=== PATIENT | female | born 1995 | race Caucasian/White ===

== ENCOUNTER 2018-05-26 02:34 | Emergency (ER) | payer BC ==
[~2018-05-26 02:34] MED LIST: ALLERGY MEDICATION; CYCL10TA29 PO; IBUP800T37 PO; TRAM-420 PO
--- NOTE | 2018-05-26 02:37 | ER Report ---
History and Physical Time Seen By MD: 02:37 HPI/ROS CHIEF COMPLAINT: Cramping in1st trimester HISTORY OF PRESENT ILLNESS: Patient is a 22-year-old female who presents with complaint of cramping and positive test. Patient states that her 1st date of her last menstrual period was April 28. She states that 2 days ago she took a urine at home test which was positive and a 2nd test yesterday and again was positive. This evening she woke up with severe lower abdominal cramping without vaginal bleeding. Patient states when the pain comes in waves it is about 7 out of 10 in intensity. Patient has no prior history. Patient is undiagnosed with endometriosis however her mother apparently had severe endometriosis resulting in hysterectomy. Patient does have very painful menses. However she has never been diagnosed with the disease. Patient is monogamous with her . Patient denies any vaginal discharge or bleeding at this time. She does report nausea but no vomiting. She denies any chest pain or shortness of breath. Denies any dysuria and increased urinary frequency or blood in the urine. REVIEW OF SYSTEMS: Respiratory: No cough, no dyspnea. Cardiovascular: No chest pain, no palpitations. Gastrointestinal: Nausea and lower pelvic and abdominal cramping Musculoskeletal: No back pain. Allergies: Coded Allergies: grass pollen (Verified Allergy, Intermediate, congestion, 05/26/18) Home Meds No Active Prescriptions or Reported Meds Past Medical/Surgical History HSV2 Hx Smoking: Yes Smoking Status: Current: Some Days Smoker Hx Substance Use Disorder: No Constitutional Vital Sign - Last 24 Hours 05/26/18 05/26/18 02:43 04:15 Temp 97.4 Pulse 109 85 Resp 16 16 B/P (MAP) 125/60 110/72 (85) Pulse Ox 96 93 O2 Delivery Room Air Room Air Physical Exam General Appearance: The patient is alert, has no immediate need for airway protection and no current signs of toxicity. Respiratory: Chest is non tender, lungs are clear to auscultation. Cardiac: regular rate and rhythm Gastrointestinal: Abdomen is soft and non tender, no masses, bowel sounds normal. Musculoskeletal: Neck: Neck is supple and non tender. Extremities have full range of motion and are non tender. Skin: No rashes or lesions. Medical Decision Making Data Points Laboratory Hematology Test 05/26/18 02:38 05/26/18 03:10 Urine Color Yellow Urine Clarity Slightly-cloudy Urine pH 6.0 pH (4.8-9.5) Urine Specific [place] 1.029 Urine Protein 30 mg/dL (NEGATIVE) Urine Glucose (UA) 50 mg/dL (NEGATIVE) Urine Ketones 80 mg/dL (NEGATIVE) Urine Blood Negative (NEGATIVE) Urine Nitrite Negative (NEGATIVE) Urine Bilirubin Negative (NEGATIVE) Urine Urobilinogen 2.0 mg/dL (0.2-1.9) Urine Leukocyte Esterase Negative (NEGATIVE) Urine RBC <1 /HPF (0-2/HPF) Urine WBC None /HPF (0-5/HPF) Urine Squamous Epithelial Cells None /LPF (</=FEW) Urine Bacteria Negative /HPF (NONE-FEW) Urine Mucus Few /HPF (NONE-FEW) Urine HCG, Qualitative Positive (NEGATIVE) Human Chorionic Gonadotropin, Quant 134 mIU/ml Chemistry Test 05/26/18 02:38 05/26/18 03:10 Urine Color Yellow Urine Clarity Slightly-cloudy Urine pH 6.0 pH (4.8-9.5) Urine Specific [place] 1.029 Urine Protein 30 mg/dL (NEGATIVE) Urine Glucose (UA) 50 mg/dL (NEGATIVE) Urine Ketones 80 mg/dL (NEGATIVE) Urine Blood Negative (NEGATIVE) Urine Nitrite Negative (NEGATIVE) Urine Bilirubin Negative (NEGATIVE) Urine Urobilinogen 2.0 mg/dL (0.2-1.9) Urine Leukocyte Esterase Negative (NEGATIVE) Urine RBC <1 /HPF (0-2/HPF) Urine WBC None /HPF (0-5/HPF) Urine Squamous Epithelial Cells None /LPF (</=FEW) Urine Bacteria Negative /HPF (NONE-FEW) Urine Mucus Few /HPF (NONE-FEW) Urine HCG, Qualitative Positive (NEGATIVE) Human Chorionic Gonadotropin, Quant 134 mIU/ml Urinalysis Test 05/26/18 02:38 Urine Color Yellow Urine Clarity Slightly-cloudy Urine pH 6.0 pH (4.8-9.5) Urine Specific [place] 1.029 Urine Protein 30 mg/dL (NEGATIVE) Urine Glucose (UA) 50 mg/dL (NEGATIVE) Urine Ketones 80 mg/dL (NEGATIVE) Urine Blood Negative (NEGATIVE) Urine Nitrite Negative (NEGATIVE) Urine Bilirubin Negative (NEGATIVE) Urine Urobilinogen 2.0 mg/dL (0.2-1.9) Urine Leukocyte Esterase Negative (NEGATIVE) Urine RBC <1 /HPF (0-2/HPF) Urine WBC None /HPF (0-5/HPF) Urine Squamous Epithelial Cells None /LPF (</=FEW) Urine Bacteria Negative /HPF (NONE-FEW) Urine Mucus Few /HPF (NONE-FEW) Urine HCG, Qualitative Positive (NEGATIVE) ED Course/Re-evaluation ED Course By first aid of last menstrual period of 04/28/2018 patient would be extremely early . Urine test was positive. Plan at this time will be to draw a beta hCG Quant to obtain baseline level. Patient does not appear hypotensive, tachycardic and is not having any evidence of vaginal bleeding currently.After history and physical exam was performed differential diagnosis was formulated which includes but is not limited to early , ectopic , threatened miscarriage. I explained to the patient that she is very early in this and she will likely require follow-up in 2-3 days for repeat beta Quant test to see which direction of the hormone levels are trending. 05/26/2018 4:09:04 am beta Quant is 134 and some cramping still no vaginal bleeding. We will discharge patient home at this time with instructions to return in 48 hours for repeat Quant level or to return to the emergency departm ent immediately if her abdominal pain becomes worse or she starts experiencing vaginal bleeding. Decision to Disposition Date: May 26, 2018 Decision to Disposition Time: 04:09 Depart Departure Latest Vital Signs Vital Signs Date Time Temp Pulse Resp B/P (MAP) Pulse Ox O2 Delivery O2 Flow Rate FiO2 05/26/18 04:15 85 16 110/72 (85) 93 Room Air 05/26/18 02:43 97.4 Impression: Primary Impression: Threatened miscarriage in early Condition: Improved Disposition: HOME OR SELF-CARE New Scripts No Active Prescriptions or Reported Meds Departure Forms: ER Transition Record, Medications Reconciliation, Off Work/School Form, School or Work Release?: Work Number of days to be released: 2 Patient Portal Information Patient Instructions: Threatened Miscarriage (ED) Additional Instructions: Return to the emergency department, and register as a patient in 48 hours to have a repeat beta hCG test drawn and have a repeat evaluation done. If at any time your abdominal pain worsens or he started having abdominal pain with vaginal bleeding he should return to the emergency department immediately. You should remain at pelvic rest meaning nothing in the vagina until cleared by TRANSMITTER ENGINEER IN CHARGE. MASON STEVENS MD 9, 2018 02:37
[2018-05-26] MEDS ORDERED: ONDANSETRON 4 MG ODT TH SL ONE (03:00)
[2018-05-26] MEDS ORDERED: ACETAMINOPHEN 325 MG TAB PO ONE (03:00)
[2018-05-26 04:15] VITALS: BP 110/72
== END 2018-05-26 04:18 | disposition home or self-care (01) ==
LOC: ER 02:38
DX: O20.0 Threatened abortion (principal); Z3A.00 Weeks of gestation of pregnancy not specified
CPT/HCPCS: 81001; 81025; 84702; 99283; S0119

== ENCOUNTER 2018-05-28 18:07 | Emergency (ER) | payer BC ==
[2018-05-28 18:11] VITALS: BP 122/76
--- NOTE | 2018-05-28 18:21 | ER Report ---
History and Physical Time Seen By MD: 18:14 Hx. of Stated Complaint: REPEAT QUANT. NO FURTHER CRAMPING. HPI/ROS CHIEF COMPLAINT: Repeat quantitative hCG HISTORY OF PRESENT ILLNESS: This is a 22-year-old female who presents to the emergency department for a repeat quantitative hCG. Patient states she was here 2 days ago, seen by Dr. Jimenez for cramping, secondary to . The 1st day of her last period was April 28. Patient had intermittent nausea still however no vomiting. She denies cramping, no spotting or any other concerns. No dysuria. REVIEW OF SYSTEMS: Respiratory: No cough, no dyspnea. Cardiovascular: No chest pain, no palpitations. Gastrointestinal: No vomiting, no abdominal pain. Musculoskeletal: No back pain. Allergies: Coded Allergies: grass pollen (Verified Allergy, Intermediate, congestion, 05/26/18) Home Meds No Active Prescriptions or Reported Meds Past Medical/Surgical History The patient has a past medical and surgical history of asthma, bowel surgery as a baby, does smoke. . Reviewed Nurses Notes: Yes Hx Smoking: Yes Smoking Status: Current: Some Days Smoker Hx Substance Use Disorder: No Constitutional Vital Sign - Last 24 Hours 05/28/18 05/28/18 18:11 19:00 Temp 98.0 Pulse 93 78 Resp 20 B/P (MAP) 122/76 Pulse Ox 98 98 O2 Delivery Room Air Physical Exam General Appearance: The patient is alert, has no immediate need for airway protection and no current signs of toxicity. Eyes: Pupils equal and round no injection. Respiratory: Chest is non tender, lungs are clear to auscultation. Cardiac: regular rate and rhythm. Gastrointestinal: Abdomen is soft and non tender, no masses, bowel sounds normal. Musculoskeletal: Neck: Neck is supple and non tender. Extremities have full range of motion and are non tender. Skin: No rashes or lesions. DIFFERENTIAL DIAGNOSIS: After history and physical exam differential diagnosis was considered for . Medical Decision Making Data Points Laboratory Hematology Test 05/28/18 18:24 05/28/18 19:15 Human Chorionic Gonadotropin, Quant 426 mIU/ml Urine Color Yellow Urine Clarity Clear Urine pH 5.0 pH (4.8-9.5) Urine Specific [place] 1.025 Urine Protein Negative mg/dL (NEGATIVE) Urine Glucose (UA) Negative mg/dL (NEGATIVE) Urine Ketones Negative mg/dL (NEGATIVE) Urine Blood Small (NEGATIVE) Urine Nitrite Negative (NEGATIVE) Urine Bilirubin Negative (NEGATIVE) Urine Urobilinogen 2.0 mg/dL (0.2-1.9) Urine Leukocyte Esterase Negative (NEGATIVE) Urine RBC <1 /HPF (0-2/HPF) Urine WBC <1 /HPF (0-5/HPF) Urine Squamous Epithelial Cells Many /LPF (</=FEW) Urine Bacteria Negative /HPF (NONE-FEW) Urine Mucus Few /HPF (NONE-FEW) Chemistry Test 05/28/18 18:24 05/28/18 19:15 Human Chorionic Gonadotropin, Quant 426 mIU/ml Urine Color Yellow Urine Clarity Clear Urine pH 5.0 pH (4.8-9.5) Urine Specific [place] 1.025 Urine Protein Negative mg/dL (NEGATIVE) Urine Glucose (UA) Negative mg/dL (NEGATIVE) Urine Ketones Negative mg/dL (NEGATIVE) Urine Blood Small (NEGATIVE) Urine Nitrite Negative (NEGATIVE) Urine Bilirubin Negative (NEGATIVE) Urine Urobilinogen 2.0 mg/dL (0.2-1.9) Urine Leukocyte Esterase Negative (NEGATIVE) Urine RBC <1 /HPF (0-2/HPF) Urine WBC <1 /HPF (0-5/HPF) Urine Squamous Epithelial Cells Many /LPF (</=FEW) Urine Bacteria Negative /HPF (NONE-FEW) Urine Mucus Few /HPF (NONE-FEW) Urinalysis Test 05/28/18 19:15 Urine Color Yellow Urine Clarity Clear Urine pH 5.0 pH (4.8-9.5) Urine Specific [place] 1.025 Urine Protein Negative mg/dL (NEGATIVE) Urine Glucose (UA) Negative mg/dL (NEGATIVE) Urine Ketones Negative mg/dL (NEGATIVE) Urine Blood Small (NEGATIVE) Urine Nitrite Negative (NEGATIVE) Urine Bilirubin Negative (NEGATIVE) Urine Urobilinogen 2.0 mg/dL (0.2-1.9) Urine Leukocyte Esterase Negative (NEGATIVE) Urine RBC <1 /HPF (0-2/HPF) Urine WBC <1 /HPF (0-5/HPF) Urine Squamous Epithelial Cells Many /LPF (</=FEW) Urine Bacteria Negative /HPF (NONE-FEW) Urine Mucus Few /HPF (NONE-FEW) ED Course/Re-evaluation ED Course The patient was admitted to room. A history of physical were obtained. differen tial diagnoses were considered. A UA was collected as well as a serum hCG.Urine showing concentration, with small urine blood, many epithelial cells, quantitative hCG 426, this is of from 134 two days ago. I did speak with Dr. Lucas regarding the urine as noted below. Urine was sent for a culture. I reviewed the results with the patient. Did instruct her to follow-up with Dr. Rere coronado, tomorrow at least call the office and try to schedule a follow-up appointment. The patient expressed understanding and was discharged home. She was encouraged to return to ER for any other concerns or worsening symptoms, fevers chills aches pains. 05/28/2018 8:21:04 pm I did speak with Dr. Lucas regarding the patient's urinalysis, I did send the urine out for a culture as recommended by Dr. Lucas. The patient will contact her office for a follow-up appointment. Decision to Disposition Date: May 28, 2018 Decision to Disposition Time: 20:20 Depart Departure Latest Vital Signs Vital Signs Date Time Temp Pulse Resp B/P (MAP) Pulse Ox O2 Delivery O2 Flow Rate FiO2 05/28/18 19:00 78 98 05/28/18 18:11 98.0 20 122/76 Room Air Impression: Primary Impression: Condition: Improved Disposition: HOME OR SELF-CARE Referrals: SUSSY LUCAS MD (PCP) 1 Week New Scripts No Active Prescriptions or Reported Meds Patient Instructions: (ED), Diet (GEN) Additional Instructions: Be sure to drink plenty of water. Get plenty of rest. Be sure to follow-up with your EMERGENCY TECHNICIAN as scheduled, sooner if needed. Return to the emergency department for any other concerns or worsening symptoms, which includes fevers or chills and back pain. Called Dr. Lucas's office tomorrow to schedule a follow-up appointment. Problem Qualifiers Primary Impression: Weeks of gestation: less than 8 weeks Qualified Codes: Z3A.01 - Less than 8 weeks gestation of MAGALIEMIGUELITO BOLDEN [employer] May 28, 2018 18:21
== END 2018-05-28 20:30 | disposition home or self-care (01) ==
LOC: ER 18:21
DX: O26.891 Other specified pregnancy related conditions, first trimester (principal); Z3A.01 Less than 8 weeks gestation of pregnancy
CPT/HCPCS: 36415; 81001; 84702; 87088; 99282

== ENCOUNTER → 2018-06-16 | Outpatient (CLI) | payer BC ==
[~2018-06-16] MED LIST changes: +PREN-148
[2018-06-16 11:56] LABS: PLATELET COUNT, AUTOMATED 313 K/uL (150-450)
== END ==
LOC: LAB 08:11
PROVIDERS: ATTEND Obstetrics & Gynecology
DX: Z34.91 Encounter for supervision of normal pregnancy, unspecified, first trimester (principal)
CPT/HCPCS: 36415; 81001; 85025; 86592; 86703; 86762; 86787; 86850; 86900; 86901; 87088; 87340

== ENCOUNTER → 2018-06-22 | Outpatient (CLI) | payer BC | LOC: LAB 08:34 | PROVIDERS: ATTEND Student in an Organized Health Care Education/Training Program | DX: Z34.91 Encounter for supervision of normal pregnancy, unspecified, first trimester (principal) | CPT/HCPCS: 87491; 87591 ==

== ENCOUNTER → 2018-09-07 | Outpatient (CLI) | payer OTHER ==
--- NOTE | 2018-09-07 14:52 | RADIOLOGY IMAGING REPORT ---
FACILITY: [facility] PATIENT NAME: Lin Richardson : 1995 MR: [id number] V: [id number] EXAM DATE: ORDERING PHYSICIAN: SUSSY SANTIAGO TECHNOLOGIST: Location: [facility] [place] Patient: Lin Richardson : 1995 Visit/Account:[id number] Date of Sevice: 09/07/2018 [facility] ANATOMICAL SURVEY HISTORY: SCREENING COMPARISON: None FINDINGS: Intrauterine gestations: 1 presentation: Variable heart rate: 134 bpm Amniotic fluid volume: JU 15.6 cm; Largest amniotic fluid pocket 4.8 cm Placenta: Anterior. No placenta previa or retroplacental hemorrhage. Uterus: Gravid, otherwise normal Maternal adnexa: Negative Cervix: 3.7 cm. Closed Gestational Parameters: BPD: 4.0 cm; 18 weeks/ 2 days HC: 15.6 cm; 18 weeks/ 4 days AC: 14.3 cm; 19 weeks/ 5 days FL: 2.9 cm; 19 weeks/ 0 days Average ultrasound age (AUA): 19 weeks/ 0 days Estimated weight (EFW): 280 grams +/- 41 grams. 67 percentile based on LMP. Anatomic Survey: Intracranial structures, 4-chamber heart, stomach, kidneys, urinary bladder, spine, 3-vessel cord and cord insertion are unremarkable. Two upper and two lower extremities visualized. IMPRESSION: IUP of 19 weeks zero days. SHANON of 02/01/2019. This correlates well with the LMP SHANON of 02/02/2019 oh Report Dictated By: Blaise Pollard MD at 09/07/2018 2:36 PM Report E-Signed By: Blaise Pollard MD at 09/07/2018 2:48 PM WSN:[facility]
== END ==
LOC: US 10:50
PROVIDERS: ATTEND Obstetrics & Gynecology
DX: Z02.9 Encounter for administrative examinations, unspecified (principal)

== ENCOUNTER 2018-09-14 17:29 | Outpatient (CLI) | payer OTHER ==
[~2018-09-14] VITALS: Ht 157.5 cm; Wt 52.6 kg
[2018-09-14] MEDS ORDERED: LR(*) 1000 ML BAG 1,000 ML IV PRN (18:24)
[2018-09-14] MEDS ORDERED: ACETAMINOPHEN 500 MG TAB PO ONE (18:25)
[2018-09-14 18:26] VITALS: BP 116/73; Ht 157.5 cm; Wt 52.6 kg
[2018-09-15] MEDS ORDERED: DOCU-416 PO (11:23)
[2018-09-15] MEDS ORDERED: NA P133E21 RC (11:23)
[2018-09-15] MEDS ORDERED: PROM12.556 PO (11:23)
[2018-09-15] MEDS ORDERED: PROM25VI14 IV (12:32)
== END 2018-09-14 20:00 | disposition home or self-care (01) ==
LOC: EDSTATUS 18:14 → OB 18:16 → UNDOADMOB 18:16 → L&D 18:16 → OB 18:16 → UNDODISOB 20:00 → L&D 20:00
PROVIDERS: ATTEND Student in an Organized Health Care Education/Training Program
DX: O26.892 Other specified pregnancy related conditions, second trimester (principal); Z3A.20 20 weeks gestation of pregnancy
CPT/HCPCS: 81001; 99213; J7120; G0378; G0379

== ENCOUNTER 2018-09-15 20:12 | Observation (INO) | payer OTHER ==
[2018-09-14 18:26] VITALS: Wt 52.6 kg
[~2018-09-15 20:12] MED LIST changes: +DOCU-416 PO; +NA P133E21 RC; +PROM12.556 PO; +PROM25VI14 IV
[2018-09-15] MEDS ORDERED: ONDANSETRON 4 MG/2 ML VIAL IVP ONE ×3 (20:15→23:20)
[2018-09-15] MEDS ORDERED: PROMETHAZINE 25 MG/ML 1 ML AMP IVP ONE (20:15)
[2018-09-15] MEDS ORDERED: LR(*) 1000 ML BAG 1,000 ML IV ONE (20:15)
--- NOTE | 2018-09-15 20:15 | ER Report ---
History and Physical Time Seen By : 20:15 HPI/ROS CHIEF COMPLAINT: Abdominal pain, vomiting HISTORY OF PRESENT ILLNESS: 22-year-old female presents at 20 weeks . Patient was seen in labor and delivery last evening with crampy abdominal pain. She was also seen an [facility] office this morning. Patient complains of continued nausea and vomiting unable to keep anything down. She did 2 fleets enemas at home without improvement. Patient reports only a small amount of stool was passed. Patient denies dysuria, frequency or hematuria. Patient's been taking Zofran and Phenergan without improvement is unable to keep it down. Dr. Lucas called and notified us that she was sending the patient in for further evaluation. She is status post appendectomy. Distant history is significant for Meckel's diverticulum with surgery at 6 months of age. REVIEW OF SYSTEMS: Respiratory: No cough, no dyspnea. Cardiovascular: No chest pain, no palpitations. Gastrointestinal: No vomiting, no abdominal pain. Musculoskeletal: No back pain. Allergies: Coded Allergies: grass pollen (Verified Allergy, Intermediate, congestion, 09/15/18) Home Meds Active Scripts Promethazine Hcl (PROMETHAZINE HCL) 12.5 Mg Tablet, 12.5 MG PO Q8H PRN for NAUSEA/VOMITING, #30 TAB 0 Refills Prov:SUSSY LUCAS MD 09/15/18 Docusate Sodium (COLACE) 100 Mg Capsule, 100 MG PO BID, #60 CAPSULE 2 Refills Prov:SUSSY LUCAS MD 09/15/18 Na Phos,M-B/Na Phos,Di-Ba (FLEET ENEMA) 133 Ml Enema, 133 ML RC DIRECTED, #1 EACH 1 Refill Prov:SUSSY LUCAS MD 09/15/18 Reported Medications Vit W-Ca,Fe,FA(<1 mg) ( Formula) 1 Each Tablet 06/16/18 Past Medical/Surgical History Past Medical History Neurologic: Reports hx of: migraine (rerely) Respiratory: Reports hx of: asthma Gastrointestinal: Reports hx of: other GI history (constipation, hx of meckel's diverticulum with surgery at 6 mo) Psychiatric: Reports hx of: anxiety Past Surgical History Gastrointestinal: Reports hx of: other GI surgery (Meckel's Diverticulum surgery at 6 months to remove 6 inches of intestine) Reviewed Nurses Notes: Yes Old Medical Records Reviewed: Yes Hx Smoking: No Smoking Status: Never Smoker Exposure to Second Hand Smoke?: No Hx Substance Use Disorder: No Constitutional Vital Sign - Last 24 Hours 09/15/18 09/15/18 09/15/18 09/15/18 20:20 20:22 20:30 20:45 Temp 99.0 Pulse 115 111 102 Resp 16 B/P (MAP) 122/79 (93) 122/79 119/87 (98) Pulse Ox 94 94 92 O2 Delivery Room Air 09/15/18 09/15/18 09/15/18 09/15/18 21:00 21:15 21:30 21:35 Pulse 106 111 102 107 B/P (MAP) 124/82 (96) 109/84 (92) Pulse Ox 100 95 99 97 09/15/18 09/15/18 09/15/18 09/15/18 21:40 21:45 21:50 21:55 Pulse ? 105 Pulse Ox 96 09/15/18 09/15/18 09/15/18 09/15/18 22:00 22:05 22:08 22:10 Pulse 116 ??? 107 B/P (MAP) ???/??? (2812) 127/79 (95) Pulse Ox 97 96 09/15/18 09/15/18 09/15/18 09/15/18 22:15 22:20 22:25 22:30 Pulse 108 112 110 125 B/P (MAP) 127/81 (96) Pulse Ox 95 98 95 93 09/15/18 09/15/18 09/15/18 09/15/18 22:35 22:40 22:45 22:50 Pulse 122 120 115 ??? Pulse Ox 93 94 96 96 09/15/18 09/15/18 09/15/18 09/15/18 23:00 23:25 23:30 23:35 Pulse ? B/P (MAP) 115/89 (98) ???/??? (1042) 09/15/18 09/15/18 09/15/18 09/15/18 23:39 23:40 23:45 23:50 Pulse 109 107 98 B/P (MAP) 112/74 (87) Pulse Ox 91 91 93 09/15/18 09/16/18 09/16/18 09/16/18 23:55 00:00 00:30 01:20 Pulse 101 99 ??? B/P (MAP) 106/73 (84) ???/??? (1665) Pulse Ox 96 Intake and Output 09/15/18 09/15/18 09/16/18 15:00 23:00 07:00 Intake Total 2000 ml 1500 ml Balance 2000 ml 1500 ml Physical Exam Vital signs stable, afebrile, pulse ox normal General Appearance: The patient is alert, has no immediate need for airway protection and no current signs of toxicity. Lightly pale appearing, skin warm and dry HEENT: Pupils equal and round no injection. Oropharynx without redness or exudate, mucous. Membranes are moist Respiratory: Chest is non tender, lungs are clear to auscultation. Cardiac: regular rate and rhythm Gastrointestinal: Abdomen is soft, gravid, consistent with dates and mildly dis tended, mild tenderness, no rebound, no masses, bowel sounds normal. Musculoskeletal: Neck: Neck is supple and non tender. Extremities have full range of motion and are non tender. Skin: No rashes or lesions. DIFFERENTIAL DIAGNOSIS: After history and physical exam differential diagnosis was considered for abdominal pain including but not limited to, cholecystitis, gastritis, obstipation, and urinary tract infection. Medical Decision Making Data Points Result Diagram: 09/15/18202409/15/182024 Laboratory Hematology Test 09/15/18 20:25 09/15/18 21:10 Red Blood Count 4.22 M/uL (4.17-5.56) Mean Corpuscular Volume 89.1 fL (80.0-96.0) Mean Corpuscular Hemoglobin 30.7 pg (26.0-33.0) Mean Corpuscular Hemoglobin Concent 34.5 g/dL (32.0-36.0) Red Cell Distribution Width 13.5 % (11.5-14.5) Mean Platelet Volume 8.5 fL (7.2-11.1) Neutrophils (%) (Auto) 87.4 % (39.4-72.5) Lymphocytes (%) (Auto) 8.8 % (17.6-49.6) Monocytes (%) (Auto) 3.7 % (4.1-12.4) Eosinophils (%) (Auto) 0.0 % (0.4-6.7) Basophils (%) (Auto) 0.1 % (0.3-1.4) Nucleated RBC Relative Count (auto) 0.0 /100WBC Neutrophils # (Auto) 16.2 K/uL (2.0-7.4) Lymphocytes # (Auto) 1.6 K/uL (1.3-3.6) Monocytes # (Auto) 0.7 K/uL (0.3-1.0) Eosinophils # (Auto) 0.0 K/uL (0.0-0.5) Basophils # (Auto) 0.0 K/uL (0.0-0.1) Nucleated RBC Absolute Count (auto) 0.00 K/uL Sodium Level 134 mmol/L (137-145) Potassium Level 3.1 mmol/L (3.5-5.0) Chloride Level 107 mmol/L (98-107) Carbon Dioxide Level 17 mmol/L (22-31) Blood Urea Nitrogen 3 mg/dl (7-18) Creatinine 0.40 mg/dl (0.52-1.04) Glomerular Filtration Rate Calc > 60.0 Random Glucose 93 mg/dl (75-110) Calcium Level 8.9 mg/dl (8.4-10.2) Total Bilirubin 0.9 mg/dl (0.2-1.3) Aspartate Amino Transf (AST/SGOT) 17 U/L (0-35) Alanine Aminotransferase (ALT/SGPT) 24 U/L (0-56) Alkaline Phosphatase 69 U/L (0-126) Total Protein 6.9 g/dl (6.3-8.2) Albumin 3.9 g/dl (3.5-5.0) Amylase Level 73 U/L (0-110) Lipase 72 U/L (23-300) Urine Color Yellow Urine Clarity Clear Urine pH 5.0 pH (4.8-9.5) Urine Specific [place] 1.029 Urine Protein 30 mg/dL (NEGATIVE) Urine Glucose (UA) 50 mg/dL (NEGATIVE) Urine Ketones 80 mg/dL (NEGATIVE) Urine Blood Negative (NEGATIVE) Urine Nitrite Negative (NEGATIVE) Urine Bilirubin Negative (NEGATIVE) Urine Urobilinogen Negative mg/dL (0.2-1.9) Urine Leukocyte Esterase Negative (NEGATIVE) Urine RBC <1 /HPF (0-2/HPF) Urine WBC 2 /HPF (0-5/HPF) Urine Squamous Epithelial Cells Many /LPF (</=FEW) Urine Bacteria Negative /HPF (NONE-FEW) Urine Mucus Few /HPF (NONE-FEW) Chemistry Test 09/15/18 20:25 09/15/18 21:10 White Blood Count 18.5 k/uL (4.5-11.0) Red Blood Count 4.22 M/uL (4.17-5.56) Hemoglobin 13.0 g/dL (12.0-16.0) Hematocrit 37.6 % (34.0-47.0) Mean Corpuscular Volume 89.1 fL (80.0-96.0) Mean Corpuscular Hemoglobin 30.7 pg (26.0-33.0) Mean Corpuscular Hemoglobin Concent 34.5 g/dL (32.0-36.0) Red Cell Distribution Width 13.5 % (11.5-14.5) Platelet Count 260 K/uL (150-450) Mean Platelet Volume 8.5 fL (7.2-11.1) Neutrophils (%) (Auto) 87.4 % (39.4-72.5) Lymphocytes (%) (Auto) 8.8 % (17.6-49.6) Monocytes (%) (Auto) 3.7 % (4.1-12.4) Eosinophils (%) (Auto) 0.0 % (0.4-6.7) Basophils (%) (Auto) 0.1 % (0.3-1.4) Nucleated RBC Relative Count (auto) 0.0 /100WBC Neutrophils # (Auto) 16.2 K/uL (2.0-7.4) Lymphocytes # (Auto) 1.6 K/uL (1.3-3.6) Monocytes # (Auto) 0.7 K/uL (0.3-1.0) Eosinophils # (Auto) 0.0 K/uL (0.0-0.5) Basophils # (Auto) 0.0 K/uL (0.0-0.1) Nucleated RBC Absolute Count (auto) 0.00 K/uL Glomerular Filtration Rate Calc > 60.0 Calcium Level 8.9 mg/dl (8.4-10.2) Total Bilirubin 0.9 mg/dl (0.2-1.3) Aspartate Amino Transf (AST/SGOT) 17 U/L (0-35) Alanine Aminotransferase (ALT/SGPT) 24 U/L (0-56) Alkaline Phosphatase 69 U/L (0-126) Total Protein 6.9 g/dl (6.3-8.2) Albumin 3.9 g/dl (3.5-5.0) Amylase Level 73 U/L (0-110) Lipase 72 U/L (23-300) Urine Color Yellow Urine Clarity Clear Urine pH 5.0 pH (4.8-9.5) Urine Specific [place] 1.029 Urine Protein 30 mg/dL (NEGATIVE) Urine Glucose (UA) 50 mg/dL (NEGATIVE) Urine Ketones 80 mg/dL (NEGATIVE) Urine Blood Negative (NEGATIVE) Urine Nitrite Negative (NEGATIVE) Urine Bilirubin Negative (NEGATIVE) Urine Urobilinogen Negative mg/dL (0.2-1.9) Urine Leukocyte Esterase Negative (NEGATIVE) Urine RBC <1 /HPF (0-2/HPF) Urine WBC 2 /HPF (0-5/HPF) Urine Squamous Epithelial Cells Many /LPF (</=FEW) Urine Bacteria Negative /HPF (NONE-FEW) Urine Mucus Few /HPF (NONE-FEW) Urinalysis Test 09/15/18 21:10 Urine Color Yellow Urine Clarity Clear Urine pH 5.0 pH (4.8-9.5) Urine Specific [place] 1.029 Urine Protein 30 mg/dL (NEGATIVE) Urine Glucose (UA) 50 mg/dL (NEGATIVE) Urine Ketones 80 mg/dL (NEGATIVE) Urine Blood Negative (NEGATIVE) Urine Nitrite Negative (NEGATIVE) Urine Bilirubin Negative (NEGATIVE) Urine Urobilinogen Negative mg/dL (0.2-1.9) Urine Leukocyte Esterase Negative (NEGATIVE) Urine RBC <1 /HPF (0-2/HPF) Urine WBC 2 /HPF (0-5/HPF) Urine Squamous Epithelial Cells Many /LPF (</=FEW) Urine Bacteria Negative /HPF (NONE-FEW) Urine Mucus Few /HPF (NONE-FEW) EKG/Imaging Imaging 09/16/2018 3:55:38 am KUB reviewed. Findings consistent with a partial small bowel obstruction X-ray: Single view portable chest x-ray was obtained. I viewed the images myself on the PACS system. My interpretation of the images is: Lung porter are clear. There is good placement of the NG tube.. The radiologist interpretation had no clinically significant variation from this interpretation. ED Course/Re-evaluation Clinical Indication for ER IV: Hydration, IV Access ED Course She was admitted to an examination room. H&P was done. The differential diagn osis was considered. Patient with abdominal pain, and vomiting. Patient was seen in [facility] last evening and OB clinic this morning. She returns with continued vomiting. Patient's treated with IV fluid hydration, Phenergan and Zofran. He consumes a Popsicle without emesis. She feels much better. Her diagnostic studies show an elevated white blood cell count of 18,000. Remainder of her laboratories are relatively unremarkable. Her urinalysis is unremarkable. Patient was given MiraLAX and apple juice. She consumed approximately half of it and then vomited up the remainder. She was kept in the ER for several hours and given additional doses of Zofran and lactated Ringer's. Continued to have persistent nausea. Case was discussed with Dr. Lucas, and the patient was admitted. Patient's case was discussed with Dr. Lomas on-call radiology who advised starting with a KUB before proceeding to CT scan of the abdomen and pelvis with IV contrast, plain films were suspicious for partial small bowel obstruction 09/16/2018 4:19:01 am case was discussed with Dr. Lucas [facility] on-call, who advises transfer to a [facility] meeting planner/GYN facility. 09/16/2018 4:36:56 am case was discussed with Dr. Damián Ortega at and [place], [place] who accepts the patient for transfer to his facility. Decision to Disposition Date: Sep 16, 2018 Decision to Disposition Time: 02:23 Depart Departure Latest Vital Signs Vital Signs Date Time Temp Pulse Resp B/P (MAP) Pulse Ox O2 Delivery O2 Flow Rate FiO2 09/16/18 01:20 ??? 09/16/18 00:30 ???/??? (1665) 09/15/18 23:55 96 09/15/18 20:22 99.0 16 Room Air Impression: Primary Impression: Partial small bowel obstruction Additional Impressions: Vomiting Constipation 20 weeks gestation of History of Meckel's diverticulum Condition: Improved Disposition: XFER TO [facility]UTE [facility]ARE [facility] Referrals: SUSSY LUCAS MD (PCP) Problem Qualifiers Additional Impressions: Vomiting Vomiting type: unspecified Vomiting Intractability: unspecified Nausea presence: unspecified Qualified Codes: R11.10 - Vomiting, unspecified Constipation Constipation type: unspecified constipation type Qualified Codes: K59.00 - Constipation, unspecified REGULO COREY DO Sep 15, 2018 20:15
[2018-09-15 20:59] LABS: PLATELET COUNT, AUTOMATED 260 K/uL (150-450)
[2018-09-15] MEDS: LR(*) 1000 ML BAG 1,000 ML IV PRN ×2 (21:13→23:36)
[2018-09-15] MEDS ORDERED: POLYETHYLENE GLYCOL 17 GM PKT PO ONE ×2 (21:15→21:20)
[2018-09-15] MEDS ORDERED: diphenhydrAMINE 50 MG/ML VIAL IVP ONE (21:25)
[2018-09-15] MEDS ORDERED: NS(*) 0.9% 500 ML BAG 500 ML IV ONE (22:00)
[2018-09-15] MEDS ORDERED: LR(*) 1000 ML BAG 1,000 ML IV PRN (23:10)
[2018-09-15] MEDS ORDERED: fentaNYL CITR 100 MCG/2 ML AMP IVP ONE (23:10)
[2018-09-16] MEDS ORDERED: ONDANSETRON 4 MG/2 ML VIAL IVP ONE (01:10)
[2018-09-16 03:00] VITALS: BP 111/73
[2018-09-16 03:15] VITALS: BP 111/73
[2018-09-16] MEDS ORDERED: ONDANSETRON 4 MG/2 ML VIAL IVP PRN (03:15)
[2018-09-16] MEDS ORDERED: METOCLOPRAMIDE 10 MG/2 ML SDV IVP PRN (03:15)
[2018-09-16] MEDS ORDERED: D5W(*) 1000 ML BAG 1,000 ML IV SCH (03:15)
--- NOTE | 2018-09-16 03:15 | NUR ---
FHT audible via Doppler for 2min; FHT 110-115; no audible decelerations
[2018-09-16] MEDS ORDERED: DLR(*) 1000 ML BAG 1,000 ML IV SCH (03:26)
--- NOTE | 2018-09-16 04:01 | RADIOLOGY IMAGING REPORT ---
FACILITY: [facility] PATIENT NAME: Lin Richardson : 1995 MR: [id number] V: [id number] EXAM DATE: ORDERING PHYSICIAN: REGULO LI TECHNOLOGIST: Location: [facility] Patient: Lin Richardson : 1995 Visit/Account:[id number] Date of Sevice: 09/16/2018 Abdomen: Indication: Abdominal pain. History of surgery for Meckel's diverticulum. Patient is . Technique: Supine and erect views of the abdomen were obtained. Comparison: None available. Findings: There appear to be multiple mildly dilated loops of small bowel in the left upper quadrant and left midabdomen. Air is present in the ascending colon, which does not appear dilated. The patter n may be consistent with partial small bowel obstruction. No suspicious calcification or soft tissue abnormality is identified. The maternal skeletal structures are unremarkable. The skeleton is v isualized in the pelvic midline. IMPRESSION: The gas pattern may be consistent with partial small bowel obstruction. A preliminary report was discussed with Dr. Li at [facility] at 0355 hours. Report Dictated By: Ricky Lomas MD at 09/16/2018 3:47 AM Report E-Signed By: Ricky Lomas MD at 09/16/2018 3:58 AM WSN:[id number]
--- NOTE | 2018-09-16 05:25 | NUR ---
Dr. Lucas dopplered T in 160's; RN at bedside
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
--- NOTE | 2018-09-16 05:33 | RADIOLOGY IMAGING REPORT ---
[facility] PATIENT NAME: Lin Richardson : 1995 MR: [id number] V: [id number] EXAM DATE: ORDERING PHYSICIAN: REGULO COREY TECHNOLOGIST: [place] [facility] [place] Lin Richardson : 1995 Visit/Account:[id number] Date of Sevice: 09/16/2018 Portable chest: Indication: Tube placement. Technique: A single frontal view was obtained. Comparison: None available. Lines and tubes: The NG tube extends below the diaphragm. No other lines or tubes are evident. Skeletal and soft tissue structures: Intact and unremarkable. Heart and mediastinum: Within normal limits. Lung porter: Well-expanded and clear. No focal or diffuse opacities. Pleural spaces: Unremarkable. Impression: NG tube in satisfactory position. No acute process is identified in the lung porter. Report Dictated By: Ricky Lomas MD at 09/16/2018 5:27 AM Report E-Signed By: Ricky Lomas MD at 09/16/2018 5:29 AM WSN:[id number]
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
[2018-09-16 06:32] VITALS: BP 120/76
[2018-09-26] MEDS ORDERED: ACET-1966 PO (14:30)
== END 2018-09-16 05:36 | disposition short-term general hospital (02) ==
LOC: ER 20:31 → UNDOADMOB 09-16 02:28 → OB 09-16 02:28
PROVIDERS: ADMIT Obstetrics & Gynecology; ATTEND Obstetrics & Gynecology
DX: O21.2 Late vomiting of pregnancy (principal); O26.892 Other specified pregnancy related conditions, second trimester; Z3A.20 20 weeks gestation of pregnancy; K59.00 Constipation, unspecified
CPT/HCPCS: 71045; 74018; 81001; 82150; 83690; 85025; 96361; 96374; 96375; 96376; 99285; G0378; J1200; J2405; J2550; J2765; J3010; J7040; J7120; 82040; 82247; 82310; 82374; 82435; 82565; 82947; 84075; 84132; 84155; 84295; 84450; 84460; 84520

== ENCOUNTER → 2018-09-16 | Outpatient (CLI) | payer OTHER ==
[2018-09-14 18:26] VITALS: BMI 21.2
[~2018-09-16] MED LIST changes: +ACET-1966 PO
== END ==
LOC: AMB 06:04
PROVIDERS: ATTEND Nurse Practitioner
DX: O26.892 Other specified pregnancy related conditions, second trimester (principal); K56.609 Unspecified intestinal obstruction, unspecified as to partial versus complete obstruction; Z3A.22 22 weeks gestation of pregnancy
CPT/HCPCS: A0425; A0433

== ENCOUNTER → 2018-11-14 | Outpatient (CLI) | payer OTHER ==
[2018-09-14 18:26] VITALS: BMI 21.2
[~2018-11-14] MED LIST changes: +DIPH0.5S2 IM; +METO-734 PO; +ONDA4TAB97 PO; +ONDA4VIA3 INJ; +VALA500T66 PO; +[UNRECOGNIZED DRUG - CODE] IV
[2018-11-14 16:44] LABS: PLATELET COUNT, AUTOMATED 220 K/uL (150-450)
== END ==
LOC: LAB 13:03
PROVIDERS: ATTEND Obstetrics & Gynecology
DX: O26.813 Pregnancy related exhaustion and fatigue, third trimester (principal)
CPT/HCPCS: 36415; 82950; 84443; 85025

== ENCOUNTER → 2019-01-01 | Outpatient (CLI) | payer OTHER ==
[2018-09-14 18:26] VITALS: BMI 21.2
[~2019-01-01] MED LIST changes: +CALC-137; -PROM12.556 PO; +PROM12.557 PO
[2019-01-01 11:35] LABS: PLATELET COUNT, AUTOMATED 227 K/uL (150-450)
== END ==
LOC: LAB 11:16
PROVIDERS: ATTEND Obstetrics & Gynecology
DX: R03.0 Elevated blood-pressure reading, without diagnosis of hypertension (principal)
CPT/HCPCS: 36415; 82040; 82247; 82310; 82374; 82435; 82565; 82947; 84075; 84132; 84155; 84295; 84450; 84460; 84520; 85025

== ENCOUNTER → 2019-01-01 | Outpatient (CLI) | payer OTHER ==
[2018-09-14 18:26] VITALS: BMI 21.2
--- NOTE | 2019-01-01 15:45 | RADIOLOGY IMAGING REPORT ---
FACILITY: [facility] PATIENT NAME: Lin Richardson : 1995 MR: [id number] V: [id number] EXAM DATE: [id number] ORDERING PHYSICIAN: TAMI WATSON TECHNOLOGIST: Location: [facility] Patient: Lin Richardson : 1995 Visit/Account:[id number] Date of Sevice: 01/01/2019 EXAMINATION: Limited Transabdominal OB Ultrasound >14 wks Without Full Anatomic Survey 01/01/2019 11:5 8 AM HISTORY: SIZE LESS THAN DATES. Hypertension. COMPARISON: 09/07/2018 FINDINGS: Intrauterine gestations: one presentation: vertex heart rate: 127 bpm Amniotic fluid index: 16.1 cm Largest amniotic fluid pocket 5.9 cm Placenta: Anterior without previa Uterus: gravid, otherwise normal Maternal adnexa: Not imaged Cervix: Grossly closed although not well seen. Transvaginal imaging was not done. Gestational Parameters: BPD: 8.9 cm 36 weeks 0 days, 68th percentile HC: 32.8 cm 37 weeks 3 days, 65th percentile AC: 30.2 cm 34 weeks 2 days, 23rd percentile FL: 7.2 cm 37 weeks 0 days, 81st percentile Average ultrasound age (AUA): 36 weeks 2 days Estimated gestational age by LMP: 35 weeks 3 days Estimated weight (EFW): 2682 grams +/- 382 grams EFW for LMP percentile: 49 Anatomic Survey: Complete anatomic survey was not performed. IMPRESSION: 1. Single live IUP in vertex presentation. 2. EGA by ultrasound is 36 weeks 2 days (SHANON 01/27/2019) which is 6 days ahead of expected dates. Th is is within range of error. Of note, the abdominal circumference lags behind the other body measure ments although is still well within 2 standard deviations for EGA. 3. Normal JU. Report Dictated By: Chao Jurado MD at 01/01/2019 3:35 PM Report E-Signed By: Chao Jurado MD at 01/01/2019 3:38 PM WSN:[id number]
== END ==
LOC: RAD 11:46
PROVIDERS: ATTEND Obstetrics & Gynecology
DX: Z02.9 Encounter for administrative examinations, unspecified (principal)

== ENCOUNTER → 2019-01-10 | Outpatient (CLI) | payer OTHER ==
[2018-09-14 18:26] VITALS: BMI 21.2
== END ==
LOC: LAB 11:28
PROVIDERS: ATTEND Advanced Practice Midwife
DX: Z36.85 Encounter for antenatal screening for Streptococcus B (principal)
CPT/HCPCS: 87081

== ENCOUNTER 2019-01-24 13:47 | Inpatient (IN) | payer OTHER ==
[~2019-01-24] VITALS: Ht 160 cm; Wt 64.9 kg
[2019-01-24 14:15] VITALS: BP 131/85; Ht 160 cm; Wt 64.9 kg
[2019-01-24] MEDS ORDERED: OXYTOCIN 30 UNIT/NS 500 ML 500 ML IV PRN ×3 (14:34→15:13)
[2019-01-24] MEDS ORDERED: FAMOTIDINE(*) 20MG/50ML PREMIX 50 ML IVPB PRN (14:34)
[2019-01-24] MEDS ORDERED: METOCLOPRAMIDE 10 MG/2 ML SDV IVP PRN (14:35)
[2019-01-24] MEDS ORDERED: LIDOCAINE 1% LOCAL 300 MG/30ML INJ PRN (14:35)
[2019-01-24] MEDS ORDERED: FLUSH 10 ML SYR IVP PRN (14:35)
[2019-01-24] MEDS ORDERED: LIDOCAINE/SOD BICARB 8.4% SYR SC PRN (14:35)
[2019-01-24] MEDS ORDERED: fentaNYL CITR 100 MCG/2 ML AMP IVP PRN (14:35)
[2019-01-24] MEDS: LR(*) 1000 ML BAG 1,000 ML IV SCH ×3 (15:14→19:17)
--- NOTE | 2019-01-24 15:14 | History & Physical ---
History of Present Illness Age of Patient: 23 : 1 Para or TPAL: 0 EDC per LMP: Feb 02, 2019 Estimated Gestational Age: 38.5 Chief Complaint IUP at 38 5/7 weeks, IOL for asymmetric IUGR History of Present Illness at 38 5/7 presented to office for routine appt. Size < dates on exam. Limited BSUS performed by Dr. Herrera showing EFW of 5lb 15 oz, 6%. AC was significantly smaller than HC/BPD. IOL recommended due to asymmetric IUGR. PT agreed to proceed. Pt has h/o HSV and has been on prophylactic valtrex, no signs of outbreak at this time. Pt had bowel obstruction, reduced via lapar otomy at 20 weeks. No bowel issues since that time. History Patient's Blood Type: O Positive Rubella Status: Immune Group B Strep Screen: Negative Miscellaneous Screens/Cultures: h/o HSV on suppressive valtrex Allergies: Coded Allergies: grass pollen (Verified Allergy, Intermediate, congestion, 09/15/18) Social History: No tobacco, alcohol or drug use. In a monogamous relationship. Family History: Congenital heart defect maternal aunt Diabetes mellitus in brother BROTHER OR SISTER Endometriosis MOTHER FH: asthma BROTHER OR SISTER FH: diabetes mellitus maternal grandmother Ovarian cyst MOTHER Med Rec Home Meds Active Scripts Valacyclovir Hcl (VALTREX) 500 Mg Tablet, 500 MG PO BID for 3 Days, #60 TAB 1 Refill Prov:TAMI HERRERA DO 01/01/19 Docusate Sodium (COLACE) 100 Mg Capsule, 100 MG PO PRN, #60 CAPSULE 2 Refills Prov:SUSSY SANTIAGO MD 11/14/18 Reported Medications Calcium/Magnesium/Vitamin D3 (Mauro-Mag Complex 300-150 mg Tab) 300 Mg Calcium-150 Mg-400 Unit Tablet 12/14/18 Acetaminophen (TYLENOL) 325 Mg Tablet, 325 MG PO PRN, TAB 09/26/18 Vit W-Ca,Fe,FA(<1 mg) ( Formula) 1 Each Tablet 06/16/18 Review of Systems All Systems Reviewed/Normal: Yes, Except as Noted Exam General Exam General Apperance: Alert/Awake/No Acute Distress Neuro: No Gross deficits Eyes: Normal Extraocular Movement & Vison ENT: Normal Cardiovascular: Regular Rate and Rhythm Respiratory: No Respiratory Distress Abdomen: Soft, Non-Tender, Non-Distended, Gravid - Non-Tender Musculoskeletal: No Weakness/Pain Extremities: No Cyanosis,Clubbing or Edema Integumentary: Skin Intact without Lesions or Rash Psychological: Alert & Oriented X3, Appropriate Mood & Affect Cervical Dialation: 3 Cervical Effacement (%): 80 Cervical Consistency: Soft Cervical Position: Anterior Station: -1 Presentation: Vertex Uterine Contraction Strength: Mild UC Resting Tone: Soft Fetus Feeling Movement?: Yes Estimated Weight(grams): 5.15 Heart Tones: 135 Heart Tone Variabilty: Moderate FHT Accelerations: Present, 15X15 FHT Decelerations: None FHT Category: I Assessment and Plan 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 No prodromal symptoms of outbreak or lesions at this time. Safe to proceed with vaginal delivery. Problem Qualifiers (1) IUGR (intrauterine growth restriction) affecting care of mother: Fetus number: single or unspecified fetus Trimester: third trimester Qualified Codes: O36.5930 - Maternal care for other known or suspected poor growth, third trimester, not applicable or unspecified TAMI HERRERA DO Jan 24, 2019 15:14
[2019-01-24 15:38] LABS: PLATELET COUNT, AUTOMATED 214 K/uL (150-450)
[2019-01-24] MEDS ORDERED: CALC600T63 PO (15:50)
[2019-01-24] MEDS ORDERED: MAGN500C10 PO (15:50)
--- NOTE | 2019-01-24 16:24 | Anesthesia OB Pre-Anes Eval ---
History of Present Illness Anesthesia Start Date: Jan 24, 2019 Anesthesia Start Time: 16:11 OB Anesthesia Diagnosis: induction - medical (IUGR) Complications: IUGR EDC: Feb 02, 2019 : 1 Para: 0 Vital Signs: Vital Signs Date Time Temp Pulse Resp B/P (MAP) Pulse Ox O2 Delivery O2 Flow Rate FiO2 01/24/19 14:15 98.4 101 14 131/85 (100) Room Air Pain Ratin (3 cm dil. feels pain in hips w contractions.) Heart Tones: 133 Result Diagram: 01/24/19 1447 Height (Inches): 63.00 Weight (Pounds): 143 BMI (kg/m2): 25 Past Medical History Medical History: asthma (no inhaler use in 2 months), other (Fainted 1 yr ago/ stress and dehydration, bowel intussception as 6 mo old repaired, during this laparoscopic take down of adhesion causing bowel obstruction.) Previous Anesthesia: general Attended Childbirth Classes?: No Hx Anesthesia Reactions: No Hx Family Anesthesia Reaction: No Current Medications: pitocin Home Meds Active Scripts Valacyclovir Hcl (VALTREX) 500 Mg Tablet, 500 MG PO BID for 3 Days, #60 TAB 1 Refill Prov:TAMI WATSON DO 01/01/19 Reported Medications Magnesium Oxide (MAGNESIUM) 500 Mg Capsule, 500 MG PO DAILY, CAPSULE 01/24/19 Calcium Carbonate (CALCIUM) 600 Mg Tablet, 600 MG PO DAILY 01/24/19 Acetaminophen (TYLENOL) 325 Mg Tablet, 325 MG PO PRN, TAB 09/26/18 Vit W-Ca,Fe,FA(<1 mg) ( Formula) 1 Each Tablet 06/16/18 Discontinued Reported Medications Calcium/Magnesium/Vitamin D3 (Mauro-Mag Complex 300-150 mg Tab) 300 Mg Calcium-150 Mg-400 Unit Tablet 12/14/18 Discontinued Scripts Docusate Sodium (COLACE) 100 Mg Capsule, 100 MG PO PRN, #60 CAPSULE 2 Refills Prov:SUSSY SANTIAGO MD 11/14/18 Allergies: Coded Allergies: grass pollen (Verified Allergy, Intermediate, congestion, 09/15/18) Anesthesia OB ROS Neurological: No migraines/headaches, No seizures, No neuropathy, No other Eyes ROS: contacts out ENT: Denies Tooth caps, Denies Loose teeth, Denies Chipped teeth, Denies Dentures, Denies Bridges, Denies Retainers, Denies Veneers, Denies Implants, Denies Tongue ring, Denies Other Pulmonary: asthma; No smoker (pks/day/yrs), No other Airway Class: ll Cardiovascular ROS: No edema, No arrhythmia, No other GI ROS: clear liquids ROS: No Herpes, No STD(s), No Liver Disease, No Renal Disease, No Other Endocrine ROS: No diabetes, No gestational diabetes, No thyroid disorder, No other Musculoskeletal ROS: No low back pain, No low back injury, No scoliosis, No other ASA Classification: 2 Assessment and Plan Anesthesia Plan: CSE Assessment: CSE vs LEB considered. pt calm and coop, w mother and AUNT AT SIDE, FOR anesthesia counseling of risks, alternatives and emergency options. Questions were answered. JENIFER MEJIA TRIM CREW SUPERVISOR Jan 24, 2019 16:24
[2019-01-24] MEDS ORDERED: FENTANYL/ROPIVACAINE 100 ML BAG EPI PRN (16:40)
[2019-01-24] MEDS ORDERED: LIDOCAINE/PF 2% 200MG/10ML AMP 200 MG/10 ML AMPUL EPI PRN (16:40)
[2019-01-24] MEDS ORDERED: fentaNYL CITR 100 MCG/2 ML AMP IT PRN (16:40)
[2019-01-24] MEDS ORDERED: BUPIVACAINE 0.25% MPF INJ EPI PRN (16:40)
[2019-01-24] MEDS ORDERED: BUPIVACAINE 0.5% INJ 30ML VIAL EPI PRN (16:40)
[2019-01-24] MEDS ORDERED: LIDO/EPI 2% MPF 1:200,000 20ML EPI PRN (16:40)
--- NOTE | 2019-01-24 20:19 | Procedure Note ---
Anesthetic Placement Note Anesthesia Plan: CSE Permit for Anesthesia Signed: Yes Anesthesia Technique: Patient Sitting Anesthesia Prep: Chlorhexidine Interspace: L 3-4 Local Anesthetic: 1% Lidocaine, 25 Gauge Needle Amount Local - cc's: 2 Anesthesia Needle: 17g Touhy/Schliff Anesthesia Attempts: 1 Loss of Resistance: Normal Saline Depth of NICKO (cm): 3.7 (musclculature very tight in easily palpable interspace. Midline stick.) Epidural Needle Placement: No CSF, No Blood, No Parasthesia Intrathecal Needle: 27 Gauge Pencan Cerebral Spinal Fluid: Yes, Clear Catheter Insertion (cm): 3.5 Catheter Type: Fitch - Spring Wound Epidural Dressing: Tegaderm, Tape (Right abdominal tape.) Anesthesia Tray: Lot Number ([id number]), Expiration Date (2020-01-15), Reference Number ([id number]) Anesthesia Medications: Intrathecal Dose: mcg Fentanyl (15), mg Marcaine MPF (3.25 mg of 0.25%), Time (1924) Epidural Test Dose: 1.5 Lido/Epi (1:200,000), Dose - mL (3), Time (1928), Negative Epidural Loading Dose: Other (none) Epidural Infusion: 0.2% Ropivicaine, With Fentanyl 2mcg/ml, Start Time: (1942) Epidural Pump Setting: Bolus Dose - mL (5), Lockout - Minutes (20), Maintenance Rate - mL/hr (8), Maximum per Hour - mL (23) Complications: None Comment: Pain level of 9/10 at peak contractions reduced to 2/10 at 2 minutes and 0/10 at 5 minutes s/p intrathecal dose. VSS. Pt intends to visit with family for a few minutes then, take a nap. Carter catheter started per RN w/o discomfort. Level T9 L , T-8 RT. JENIFER MEJIA CRNA Jan 24, 2019 20:19
--- NOTE | 2019-01-24 21:06 | Labor Progress Note ---
Labor Subjective Progress Notes Subjective Pt comfortable with epidural. Vaginal Discharge/Fluid: Clear Fluid (AROM, IUPC placed w/o difficulty ) Labor Pain: Mild Neurological: No Headache Labor Objective Vital Signs Vital Signs Date Time Temp Pulse Resp B/P (MAP) Pulse Ox O2 Delivery O2 Flow Rate FiO2 01/24/19 14:15 98.4 101 14 131/85 (100) Room Air Cervical Dialation: 5 Cervical Effacement (%): 100 Cervical Consistency: Soft Cervical Position: Anterior Station: -1 Presentation: Vertex Uterine Contractions(Q min): 2 (pit at 18 mu) Uterine Contraction Strength: Strong UC Resting Tone: Soft Fetus Heart Tone Variabilty: Moderate FHT Accelerations: Present, 15X15 FHT Decelerations: None FHT Category: I General Exam General Appearance: Alert/Awake/No Acute Distress Abdomen: Gravid - Non-Tender Extremities: No Cyanosis,Clubbing or Edema Integumentary: Skin Intact without Lesions or Rash Psychological: Alert & Oriented X3, Appropriate Mood & Affect Other Result Diagram: 01/24/19 1447 01/24/19 1451 Assessment and Plan Problems: (1) IUGR (intrauterine growth restriction) affecting care of mother Status: Acute Assessment & Plan: Will monitor MVUs and adjust pitocin as needed. Repeat SVE in 2 hours. Anticipate . 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
[2019-01-24] MEDS ORDERED: ONDANSETRON 4 MG/2 ML VIAL ONE (22:32)
[2019-01-24] MEDS ORDERED: ONDANSETRON 4 MG/2 ML VIAL IVP ONE (22:35)
[2019-01-25] VITALS (7 sets, daily range): BP systolic 115–132; BP diastolic 56–85
[2019-01-25] MEDS ORDERED: HYDROCORTISONE 2.5% CR 30GM TB PR PRN (01:05)
[2019-01-25] MEDS ORDERED: BENZOCAINE 20% 60 ML BTL TP PRN (01:05)
[2019-01-25] MEDS ORDERED: ACETAMINOPHEN 325 MG TAB PO PRN (01:05)
[2019-01-25] MEDS ORDERED: LANOLIN OINT 7 GM TUBE TP PRN (01:05)
[2019-01-25] MEDS ORDERED: MEASLES,MUMP,RUBELLA VAC 0.5ML SUBQ ONE (01:05)
[2019-01-25] MEDS ORDERED: GLYCERIN/WITCH HAZEL LEAF 1 PK TP PRN (01:05)
[2019-01-25] MEDS ORDERED: DIPHTH/TETANUS/ACEL. PERTUSSIS IM ONLY ONE (01:05)
[2019-01-25] MEDS ORDERED: MAGNESIUM HYDROXIDE* 30ML UDCP PO PRN (01:05)
[2019-01-25] MEDS ORDERED: INFLUENZA VIRUS VAC 0.5ML SYR IM ONLY ONE (01:05)
--- NOTE | 2019-01-25 01:06 | OB Delivery Note ---
Delivery Note Vaginal Delivery Type: Spont. Vaginal Delivery Delivery Date: Jan 25, 2019 Delivery Anesthesia: Epidural Sex: Female Apgars: 1 Minute (8), 5 Minute (9) Repair Needed: Superficial, Vaginal, Labial Notes: Pt pushed to deliver a viable female in the JHOAN position, perineum intact. vigorous at , nose and mouth bulb suctioned, 3VC clamped after 30 sec delay. Spontaneous delivery of intact placenta. First degree vaginal lac repaired with 3.0 rapide. EBL 200 cc. I performed entire delivery and repair unassisted. Shank Piece Tacker in Attendence: TAMI Grimaldo DO Jan 25, 2019 01:06
--- NOTE | 2019-01-25 02:18 | Anesthesia Progress Note ---
Progress/Maintenance Anesthesia Note Date: Jan 24, 2019 Anesthesia Note Time: 23:30 Pain Intensity: 1 Pump: On Pump Rate (ML/HR): 8 Sensory Level: T 9 bilat. Motor Level: Bending Knees-Bilateral Dilatation: 10 (Complete, pushing w good pain relief.) Position: Semi-Fowlers JENIFER MEJIA CRNA Jan 25, 2019 02:18
--- NOTE | 2019-01-25 02:33 | Anesthesia Progress Note ---
Progress/Maintenance Anesthesia Note Date: Jan 25, 2019 Anesthesia Note Time: 01:00 Pain Intensity: 0 Pump: Off Pump Rate (ML/HR): 0 Sensory Level: T 12 Motor Level: Bending Knees-Bilateral Position: Other (Supine, ) Assessment and Plan Assessment: Delivery at 0024. bilateral labial tears and 1 degree vaginal tear repair completed at 0059 and pump turned off. Pt with firm uterus, and VSS. Female in arms and doing well. Anesthesia Stop Day: Jan 25, 2019 Anesthesia Stop Time: 00:59 Epidural Catheter Removal: Yes, Removed by: (Jenifer Treadwell CRNA) Removal Date: Jan 25, 2019 Removal Time: 02:25 Condition Uterus firm, lochia moderate, + full motor and sensation to legs. block resolved. Signs and symptoms of infection reviewed. stick site is w/o redness swelling or drainage. Pt and agree to seek medical assistance for signs of infection returning block or persistent ALVARADO. JENIFER TREADWELL CRNA Jan 25, 2019 02:33
--- NOTE | 2019-01-25 08:55 | Anesthesia Post Eval Note ---
Anesthesia Post Eval Note Vital Signs Date Time Temp Pulse Resp B/P (MAP) Pulse Ox O2 Delivery O2 Flow Rate FiO2 01/25/19 02:43 97.8 92 18 132/66 (88) Room Air 01/25/19 02:01 93 Hematology Test 01/24/19 14:47 White Blood Count 9.5 k/uL (4.5-11.0) Red Blood Count 4.37 M/uL (4.17-5.56) Hemoglobin 12.1 g/dL (12.0-16.0) Hematocrit 36.3 % (34.0-47.0) Mean Corpuscular Volume 83.1 fL (80.0-96.0) Mean Corpuscular Hemoglobin 27.8 pg (26.0-33.0) Mean Corpuscular Hemoglobin Concent 33.4 g/dL (32.0-36.0) Red Cell Distribution Width 15.6 % (11.5-14.5) H Platelet Count 214 K/uL (150-450) Mean Platelet Volume 9.7 fL (7.2-11.1) Neutrophils (%) (Auto) 75.1 % (39.4-72.5) H Lymphocytes (%) (Auto) 18.1 % (17.6-49.6) Monocytes (%) (Auto) 6.2 % (4.1-12.4) Eosinophils (%) (Auto) 0.4 % (0.4-6.7) Basophils (%) (Auto) 0.2 % (0.3-1.4) L Nucleated RBC Relative Count (auto) 0.1 /100WBC Neutrophils # (Auto) 7.2 K/uL (2.0-7.4) Lymphocytes # (Auto) 1.7 K/uL (1.3-3.6) Monocytes # (Auto) 0.6 K/uL (0.3-1.0) Eosinophils # (Auto) 0.0 K/uL (0.0-0.5) Basophils # (Auto) 0.0 K/uL (0.0-0.1) Nucleated RBC Absolute Count (auto) 0.01 K/uL Chemistry Test 01/24/19 14:51 Sodium Level 134 mmol/L (137-145) Potassium Level 4.2 mmol/L (3.5-5.0) Chloride Level 106 mmol/L (98-107) Carbon Dioxide Level 18 mmol/L (22-31) Blood Urea Nitrogen 8 mg/dl (7-18) Creatinine 0.40 mg/dl (0.52-1.04) Glomerular Filtration Rate Calc > 60.0 Random Glucose 79 mg/dl (75-110) Calcium Level 10.0 mg/dl (8.4-10.2) Total Bilirubin 0.4 mg/dl (0.2-1.3) Aspartate Amino Transf (AST/SGOT) 22 U/L (0-35) Alanine Aminotransferase (ALT/SGPT) 26 U/L (0-56) Alkaline Phosphatase 284 U/L (0-126) Total Protein 6.7 g/dl (6.3-8.2) Albumin 3.5 g/dl (3.5-5.0) Urinalysis Test 01/24/19 20:30 Urine Color Yellow Urine Clarity Slightly-cloudy Urine pH 7.0 pH (4.8-9.5) Urine Specific [place] 1.015 Urine Protein Negative mg/dL (NEGATIVE) Urine Glucose (UA) Negative mg/dL (NEGATIVE) Urine Ketones 80 mg/dL (NEGATIVE) Urine Blood Negative (NEGATIVE) Urine Nitrite Negative (NEGATIVE) Urine Bilirubin Negative (NEGATIVE) Urine Urobilinogen Negative mg/dL (0.2-1.9) Urine Leukocyte Esterase Negative (NEGATIVE) Urine RBC 2 /HPF (0-2/HPF) Urine WBC 1 /HPF (0-5/HPF) Urine Squamous Epithelial Cells None /LPF (NONE-FEW) Urine Bacteria Few /HPF (NONE-FEW) Urine Mucus None /HPF (NONE-FEW) Urine Yeast (Budding) Few /HPF Vital Signs Date Time Temp Pulse Resp B/P (MAP) Pulse Ox O2 Delivery O2 Flow Rate FiO2 01/25/19 02:43 97.8 92 18 132/66 (88) Room Air 01/25/19 02:01 93 Pt able to participate in Eval: Yes Cardiovascular Status: Satisfactory Respiratory Status: Satisfactory Pain Managment: Satisfactory PO Nausea/Vomiting: Satisfactory Temperature Management: Satisfactory Mental Status: Satisfactory, Alert, Oriented X3 Post-Op Hydration Status: Tolerating PO Well, Voiding w/o Difficulty Anesthesia Type: CSE Anesthesia Tolerance: Cheerful and alert. Pt has ambulated and voided. Denies itching ALVARADO. Agrees to seek medical attention for persistent ALVARADO or signs of infection. No anesthesia associated complications noted. JENIFER MEJIA CUSTOMS COMPLIANCE DIRECTOR Jan 25, 2019 08:55
[2019-01-25] MEDS ORDERED: IBUPROFEN 800 MG TAB PO SCH (09:00)
[2019-01-25] MEDS: DOCUSATE CALCIUM 240 MG CAP PO SCH ×2 (09:00→21:30)
[2019-01-25] MEDS: IBUPROFEN 800 MG TAB PO SCH ×2 (09:01→17:43)
--- NOTE | 2019-01-25 13:04 | OB/GYN Progress Note ---
OB Subjective Progress Notes Subjective Doing good ppd #1. Tolerating PO intake. No nausea or vomiting. Pain controlled with po medications. Would like something stronger then Tylenol. No issues. Lochia appropriate. . GI: NEG Nausea, NEG Vomiting, NEG Flatus, NEG Bowel Movement : Voiding Well, Vaginal Bleeding, Moderate Pain: Moderate, Tolerating PO Pain Meds Neurological: No Headache, No Other Eyes: No Visual Disturbances OB Objective Physical Exam Vital Signs Date Time Temp Pulse Resp B/P (MAP) Pulse Ox O2 Delivery O2 Flow Rate FiO2 01/25/19 09:02 98.3 92 18 121/57 (78) Room Air 01/25/19 02:01 93 Intake and Output 01/25/19 07:02 Intake Total 2700 ml Output Total 1600 ml Balance 1100 ml IV Total 2700 ml Output Urine Total 1600 ml # Voids 1 General Appearance: Alert/Awake/No Acute Distress Neurological: No Gross deficits Eyes: Normal Extraocular Movement & Vison Cardiovascular: Normal Rhythm & Peripheral Pulses, Regular Rate and Rhythm Respiratory: No Respiratory Distress Abdomen: Soft, Non-Tender, Non-Distended, Fundus Firm Extremities: No Cyanosis,Clubbing or Edema Integumentary: Skin Intact without Lesions or Rash Psychological: Alert & Oriented X3, Appropriate Mood & Affect Result Diagram: 01/24/19 1447 01/24/19 1451 Assessment and Plan LIBRARY TECHNICIAN Assessment: Stable LIBRARY TECHNICIAN Plan: Discharge Home Tomorrow Problems: (1) IUGR (intrauterine growth restriction) affecting care of mother Status: Resolved Assessment & Plan: Doing good PPD # 1. Will continue to follow until tomorrow. Add [place] 5 to medications to help with pain. 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
[2019-01-25] MEDS: APAP/HYDROCODONE 325/5 TAB PO PRN ×2 (13:30→20:42)
[2019-01-25] MEDS: LR(*) 1000 ML BAG 1,000 ML IV SCH (20:34)
[2019-01-26] MEDS: IBUPROFEN 800 MG TAB PO SCH ×2 (02:20→08:53)
[2019-01-26 03:40] VITALS: BP 135/86
[2019-01-26] MEDS ORDERED: IBUP800T37 PO (08:36)
--- NOTE | 2019-01-26 08:38 | OB/GYN Discharge Summary ---
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 Lates Vital Signs Vital Signs Date Time Temp Pulse Resp B/P (MAP) Pulse Ox O2 Delivery O2 Flow Rate FiO2 01/26/19 03:40 97.4 93 18 135/86 (102) Room Air 01/25/19 02:01 93 Weight (Pounds): 143 Result Diagram: 01/26/19 0554 01/24/19 1451 Condition: Improved Discharge: Home, Self Longterm Meds Active Scripts Valacyclovir Hcl (VALTREX) 500 Mg Tablet, 500 MG PO BID for 3 Days, #60 TAB 1 Refill Prov:TAMI WATSON DO 01/01/19 Reported Medications Magnesium Oxide (MAGNESIUM) 500 Mg Capsule, 500 MG PO DAILY, CAPSULE 01/24/19 Calcium Carbonate (CALCIUM) 600 Mg Tablet, 600 MG PO DAILY 01/24/19 Acetaminophen (TYLENOL) 325 Mg Tablet, 325 MG PO PRN, TAB 09/26/18 Vit W-Ca,Fe,FA(<1 mg) ( Formula) 1 Each Tablet 06/16/18 Discontinued Reported Medications Calcium/Magnesium/Vitamin D3 (Mauro-Mag Complex 300-150 mg Tab) 300 Mg Calcium-150 Mg-400 Unit Tablet 12/14/18 Discontinued Scripts Docusate Sodium (COLACE) 100 Mg Capsule, 100 MG PO PRN, #60 CAPSULE 2 Refills Prov:SUSSY SANTIAGO MD 11/14/18 Follow up with: [facility] [phone] (2 weeks) Discharge Diet: As Tolerates Discharge Activity: No Heavy Lifting x 6 wks, Pelvic Rest Problem Qualifiers (1) IUGR (intrauterine growth restriction) affecting care of mother: Fetus number: single or unspecified fetus Trimester: third trimester Qualified Codes: O36.5930 - Maternal care for other known or suspected poor growth, third trimester, not applicable or unspecified TAMI WATSON DO Jan 26, 2019 08:37
--- NOTE | 2019-01-26 08:39 | OB/GYN Progress Note ---
OB Subjective Progress Notes GI: NEG Nausea, NEG Vomiting : Voiding Well, Vaginal Bleeding, Scant Pain: Mild Neurological: No Headache OB Objective Physical Exam Vital Signs Date Time Temp Pulse Resp B/P (MAP) Pulse Ox O2 Delivery O2 Flow Rate FiO2 01/26/19 03:40 97.4 93 18 135/86 (102) Room Air 01/25/19 02:01 93 Intake and Output 01/26/19 07:02 Intake Total 90 ml Balance 90 ml Intake Oral 90 ml General Appearance: Alert/Awake/No Acute Distress Neurological: No Gross deficits Eyes: Normal Extraocular Movement & Vison Cardiovascular: Normal Rhythm & Peripheral Pulses, Regular Rate and Rhythm Respiratory: No Respiratory Distress Abdomen: Soft, Non-Tender, Non-Distended, Fundus Firm Extremities: No Cyanosis,Clubbing or Edema Integumentary: Skin Intact without Lesions or Rash Psychological: Alert & Oriented X3, Appropriate Mood & Affect Result Diagram: 01/26/19 0554 01/24/19 1451 Assessment and Plan TEACHING DIETITIAN Plan: Routine Post- Care Problems: (1) IUGR (intrauterine growth restriction) affecting care of mother Status: Resolved Assessment & Plan: Stable for d/c to home, PPD #2 , RTO in 2 weeks for f/u (2) 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
[2019-01-26 08:50] VITALS: BP 113/65
[2019-01-26] MEDS: DOCUSATE CALCIUM 240 MG CAP PO SCH (08:53)
[2019-01-29] MEDS ORDERED: NITR-105 PO (11:45)
[2019-01-29] MEDS ORDERED: FERR325T24 PO (16:37)
== END 2019-01-26 11:50 | disposition home or self-care (01) | DRG 806 ==
LOC: OB 13:47
PROVIDERS: ADMIT Obstetrics & Gynecology; ATTEND Obstetrics & Gynecology
PROC: 10E0XZZ Delivery of Products of Conception, External Approach (ICD-10-PCS; principal; 2019-01-25)
PROC: 10907ZC Drainage of Amniotic Fluid, Therapeutic from Products of Conception, Via Natural or Artificial Opening (ICD-10-PCS; 2019-01-25)
PROC: 0HQ9XZZ Repair Perineum Skin, External Approach (ICD-10-PCS; 2019-01-25)
DX: O36.5930 Maternal care for other known or suspected poor fetal growth, third trimester, not applicable or unspecified (principal); O98.52 Other viral diseases complicating childbirth; Z37.0 Single live birth; B00.9 Herpesviral infection, unspecified; Z3A.38 38 weeks gestation of pregnancy; O99.52 Diseases of the respiratory system complicating childbirth; J45.909 Unspecified asthma, uncomplicated; O70.0 First degree perineal laceration during delivery
CPT/HCPCS: 36415; 81001; 82040; 82247; 82310; 82374; 82435; 82565; 82947; 84075; 84132; 84155; 84295; 84450; 84460; 84520; 85025; 85027; 86850; 86900; 86901; J2405; J2590; J7120

== ENCOUNTER → 2019-01-29 | Outpatient (CLI) | payer OTHER ==
[2019-01-24 14:15] VITALS: BMI 25.3
[~2019-01-29] MED LIST changes: +CALC600T63 PO; +FERR325T24 PO; +MAGN500C10 PO; +NITR-105 PO
== END ==
LOC: LAB 11:39
PROVIDERS: ATTEND Obstetrics & Gynecology
DX: N39.0 Urinary tract infection, site not specified (principal); B95.7 Other staphylococcus as the cause of diseases classified elsewhere
CPT/HCPCS: 87077; 87088; 87186